=== PATIENT | female | born 1980 | race Caucasian/White ===

== ENCOUNTER 2020-11-06 07:08 | Day surgery (SDC) | payer MEDICAID, OTHER ==
[2020-11-06] MEDS ORDERED: Lidocaine 2% 5 ML SDV INJECT ONE (07:09)
[2020-11-06] MEDS ORDERED: Propofol 200 MG/20 ML SDV IV ONE (07:09)
[2020-11-06] MEDS ORDERED: Lactated Ringers 1,000 ML IV ONE (07:09)
[2020-11-06] MEDS ORDERED: Neostigmine Methylsulfate 10 MG/10 ML MDV IVPUSH ONE (07:09)
[2020-11-06] MEDS ORDERED: Midazolam 1 MG/ML 2 ML SDV IV ONE (07:09)
[2020-11-06] MEDS ORDERED: fentaNYL 100 MCG/2 ML SDV IV ONE (07:09)
[2020-11-06] MEDS ORDERED: Glycopyrrolate 0.2 MG/ML 5 ML MDV IV ONE (07:09)
[2020-11-06] MEDS ORDERED: Rocuronium 50 MG/5 ML Vial IV ONE (07:09)
[2020-11-06] MEDS ORDERED: Ondansetron 4 MG/2 ML SDV IVPUSH ONE (07:09)
[2020-11-06] MEDS ORDERED: Ketorolac 30 MG/ML SDV IVPUSH ONE (07:09)
[2020-11-06] MEDS ORDERED: Dexamethasone 4 MG/ML 5 ML MDV IVPUSH ONE (07:09)
[2020-11-06] MEDS ORDERED: Labetalol 100 MG/20 ML MDV IV ONE (07:09)
[2020-11-06] MEDS ORDERED: ceFAZolin 2 GM in Premix Bag 1 BAG IV ONE (07:15)
[2020-11-06] MEDS ORDERED: Lactated Ringers 1,000 ML IV SCH (07:15)
[2020-11-06] MEDS ORDERED: Sodium Chloride 0.9% 10 ML Syringe FLUSH PRN (07:15)
[2020-11-06] MEDS ORDERED: Acetaminophen 500 MG Tab PO ONE (07:28)
[2020-11-06] MEDS ORDERED: Acetaminophen 650 MG Tab.ER PO ONE (07:30)
[2020-11-06] MEDS ORDERED: Albuterol/Ipratropium 3.0-0.5 MG/3 ML Neb Soln NEB ONE (07:30)
--- NOTE | 2020-11-06 09:11 | PCM.PN ---
- General Info Date of Service: 11/06/20 - Review of Systems Systems Review Comment:: 40 y/o female with history of gallbladder polyp and associated GI symptoms here for cholecystectomy. She is medically stable to proceed. I have discussed the proposed cholecystectomy with the patient again. Her questions were answered and she agrees to proceed accepting risks. - Patient Data Vitals - Most Recent: Last Vital Signs Temp 98.0 F 11/06/20 08:18 Pulse 67 11/06/20 08:18 Resp 16 11/06/20 08:18 BP 134/91 H 11/06/20 08:18 Pulse Ox 96 11/06/20 08:18 Weight - Most Recent: 255 lb Lab Results Last 24 Hours: Laboratory Results - last 24 hr 11/06/20 Range/Units 07:35 SARS-CoV-2 RNA (SULAIMAN) Negative (NEGATIVE) Med Orders - Current: Current Medications Lactated Ringer's (Ringers, Lactated) 1,000 mls @ 125 mls/hr IV ASDIRECTED JASMYN Last Admin: 11/06/20 08:11 Dose: 125 mls/hr Documented by: Sodium Chloride (Sodium Chloride 0.9% 10 Ml Syringe) 10 ml FLUSH ASDIRECTED PRN PRN Reason: Keep Vein Open Discontinued Medications Acetaminophen (Acetaminophen 650 Mg Tab.Er) 1,300 mg PO NOW ONE Stop: 11/06/20 07:31 Acetaminophen (Acetaminophen 500 Mg Tab) 1,000 mg PO ONETIME ONE Stop: 11/06/20 07:29 Last Admin: 11/06/20 07:57 Dose: 1,000 mg Documented by: Albuterol/Ipratropium (Albuterol/Ipratropium 3.0-0.5 Mg/3 Ml Neb Soln) 3 ml NEB ONETIME ONE Stop: 11/06/20 07:31 Last Admin: 11/06/20 08:12 Dose: 3 ml Documented by: Cefazolin Sodium/Dextrose 2 gm (/ Premix) 50 mls @ 100 mls/hr IV ONETIME ONE Stop: 11/06/20 07:44 Last Admin: 11/06/20 08:16 Dose: 100 mls/hr Documented by: - Patient Data Lab Results Last 24 hrs: Laboratory Results - last 24 hr 11/06/20 Range/Units 07:35 SARS-CoV-2 RNA (SULAIMAN) Negative (NEGATIVE) Sepsis Event Note - Focused Exam Vital Signs: Vital Signs Temp Pulse Resp BP Pulse Ox 11/06/20 08:18 98.0 F 67 16 134/91 H 96 - Problem List Review Problem List Initiated/Reviewed/Updated: Yes - My Orders Last 24 Hours: My Active Orders 11/06/20 Breakfast Nothing Per Oral Diet [DIET] 11/06/20 07:15 Patient Status [ADT] Routine Patient to Empty Bladder [RC] ASDIRECTED RT Incentive Spirometry [RC] ASDIRECTED Verify Patient Consent Obtain [RC] ASDIRECTED Lactated Ringers [Ringers, Lactated] 1,000 ml IV ASDIRECTED Sodium Chloride 0.9% [Saline Flush] 10 ml FLUSH ASDIRECTED PRN Peripheral IV Insertion Adult [OM.PC] Routine Sequential Compression Device [OM.PC] Routine - Assessment Assessment:: Gallbladder polyp with symptoms - Plan Plan:: Cholecystectomy
[2020-11-06] MEDS ORDERED: Bupivacaine 0.5% 30 ML SDV INJECT ONE (09:28)
--- NOTE | 2020-11-06 10:42 | PCM.OPNOTE ---
- General Post-Op/Procedure Note Date of Surgery/Procedure: 11/06/20 Operative Procedure(s): Cholecystectomy Findings: Few adhesions to gallbladder Structures otherwise appear normal on surface Pre Op Diagnosis: Symptomatic Gallbladder polyp Post-Op Diagnosis: Same Anesthesia Technique: General ET Tube Primary Surgeon: Kp Caro Pathology: Gallbladder EBL in mLs: 10 Complications: None Condition: Good
[2020-11-06] MEDS ORDERED: Acetaminophen/oxyCODONE 325-5 MG Tab PO ONE (11:18)
[2020-11-06 12:00] VITALS: BP 116/72; PULSE 84
--- NOTE | 2020-11-07 10:04 | OR ---
DATE OF OPERATION: 11/06/2020 SURGEON: Kp Caro MD PREOPERATIVE DIAGNOSIS: Symptomatic gallbladder polyp. POSTOPERATIVE DIAGNOSIS: Symptomatic gallbladder polyp. OPERATION PERFORMED: Laparoscopic cholecystectomy. INDICATIONS FOR SURGERY: This 40-year-old female has been having symptoms of postprandial nausea and abdominal bloating. Workup has identified a gallbladder polyp on ultrasound and her gallbladder was felt to be the source of her symptoms. She comes for cholecystectomy. FINDINGS: The gallbladder does not appear acutely inflamed, although does have adhesions to its undersurface suggestive of prior inflammation. The adjacent liver and other intraabdominal organs as viewed laparoscopically appear normal. PROCEDURE IN DETAIL: The patient was taken to the operating room. She was given general endotracheal anesthesia and the abdomen was sterilely prepped and draped. A supraumbilical stab wound incision was made. Through this, a Veress needle was inserted, and pneumoperitoneum via this needle to a pressure of 15 mmHg was achieved with carbon dioxide. The Veress needle was then replaced with a 12 mm trocar into which the 5 mm variable angled laparoscopic camera is inserted. Under direct visualization, 5 mm trocars were placed in the subxiphoid midline and in 2 areas of the right abdomen. All trocar sites were infiltrated with Marcaine prior to incision. Intra-abdominal inspection was carried out and attention was turned to the gallbladder. It was secured with grasping forceps placed through the lateral trocars and retracted superiorly and anteriorly. Fatty tissue adhesions to the undersurface of the gallbladder are carefully taken down until the cystic duct was able to be identified and this was carefully exposed by dissecting the fatty tissue and peritoneum around it away. Additional dissection in the triangle of Calot identified the cystic artery which is doubly clipped and divided. The triangle of Calot being cleared and the cystic duct being positively identified, it was then milked and doubly clipped and divided near the gallbladder with great care being used to avoid any injury or compromise to the common bile duct. The gallbladder was then dissected free from the undersurface of the liver using the hook cautery device. Once this had been completed, the gallbladder was extracted without difficulty through the umbilical trocar site. Reinspection of the gallbladder bed showed no sign of bleeding or any other complication. The pneumoperitoneum was evacuated and the trocars were removed under direct visualization. The fascia of the umbilical trocar site was closed with a [id number] 0 Vicryl suture. Wounds were irrigated with Betadine and saline solution. Skin incisions approximated with interrupted 4-0 Vicryl, and benzoin and Steri-Strips were applied. Sterile dressings were placed. The patient was awakened, extubated, and taken from the operating room in satisfactory condition. ESTIMATED BLOOD LOSS: 10 mL. COMPLICATIONS: None. PROGNOSIS: Good. /[id number] ALEX/ANGEL LUIS
== END 2020-11-06 12:12 | disposition home or self-care (01) ==
LOC: FB.SDS 07:08
PROVIDERS: ATTEND Surgery
DX: K81.1 Chronic cholecystitis (principal); E78.5 Hyperlipidemia, unspecified; Z01.812 Encounter for preprocedural laboratory examination; F17.210 Nicotine dependence, cigarettes, uncomplicated; Z20.822 Contact with and (suspected) exposure to COVID-19; Z98.890 Other specified postprocedural states; Z90.13 Acquired absence of bilateral breasts and nipples; Z90.710 Acquired absence of both cervix and uterus
CPT/HCPCS: 00790; 47562; 87635; 88304; 94150; A9270; J0690; J1100; J1885; J2250; J2405; J2704; J2710; J3010; J3490; J7120; J7620-GY; U0002